=== PATIENT | male | born 1950 | race Caucasian/White ===

== ENCOUNTER 2021-11-14 12:18 | Emergency (ER) | payer MEDICARE ==
[~2021-11-14 12:18] MED LIST: CYCLOBENZAPRINE10 MG PO; VALIUM 5 MG TAB5 MG PO
[2021-11-14] MEDS ORDERED: CYCLOBENZAPRINE10 MG PO (15:44)
[2021-11-14] MEDS ORDERED: HYDROCODON-ACE1 EAC4 PO (15:44)
== END 2021-11-14 16:09 | disposition home or self-care (01) ==
LOC: ER1 12:18
DX: S39.012A Strain of muscle, fascia and tendon of lower back, initial encounter (principal); G31.89 Other specified degenerative diseases of nervous system; X58.XXXA Exposure to other specified factors, initial encounter
CPT/HCPCS: 72100; 96372; 99283; J1885